=== PATIENT | female | born 1945 | race Caucasian/White ===

== ENCOUNTER 2021-07-14 20:16 | Inpatient (IN) | payer OTHER ==
[~2021-07-14] VITALS: Ht 160 cm; Wt 88.5 kg
[2021-07-14] MEDS ORDERED: COZAAR100 MG PO (20:36)
[2021-07-14] MEDS ORDERED: NORVASC5 MG PO (20:36)
[2021-07-14] MEDS ORDERED: LIPITOR40 M1 PO (20:36)
[2021-07-14] MEDS ORDERED: PROTONIX40 M1 PO (20:37)
--- NOTE | 2021-07-14 20:37 | NUR ---
SE RECIBE PTE ALERTA Y ORIENTADA X3 QUIEN REFIERE TENER DOLOR ABDOMINAL Y DISTENCION ABDOMINAL DESDE EL VIERNES. DORIS REFIERE DESDE EL VIERNES TOBIAS PRESENTADO DE 3 A 4 DIARREAS POR RUSS. AL RUSS DE HOY SOLO TUVO ALPHONSO DIARREA. SE MONITOREAN S/V Y SE UBICA.
--- NOTE | 2021-07-14 20:51 | NUR ---
SE ORIENTA PTE SOBRE TX MEDICO EL CUAL REFIERE ENTENDER.SE LE EXTRAEN MUESTRAS BAJO MEDIDAS ASEPTICAS,SE CANALIZA Y SE ADMINISTRA MEDICAMENTO MEDICAMENTO VENKATESH ORDEN MEDICA.SE ENTREGA CONTRASTE Y SE ORIENTA.PTE MANEJADO POR MS SHAH.
--- NOTE | 2021-07-15 00:53 | NUR ---
SE RECIBE PTE ALERTA Y ORIENTADA X3 EN BART CON BARANDAS ELEVADAS. PTE CANALIZADA AREA SUPRIYA DE EDEMA Y DE ENROJECIMIENTO. PTE EN ESPERA DE CT PO A REALIZAR A LAS 12:30AM.
--- NOTE | 2021-07-15 07:37 | NUR ---
SE RECIBE PACIENTE DE TURNO ANTERIOR, ALERTA Y ORIENTADA EN TIEMPO LUGAR Y PERSONA. UBICADA EN BART #09 CON BARANDAS ELEVADAS Y FRENOS AJUSTADOS POR SEGURIDAD. CON VENOPUNCION PATENTE, SUPRIYA DE ERITEMA Y EDEMA, RECIBIENDO AL MOMENTO 0.9 NSS 1000ML A 150ML/HR. PENDIENTE CONSULTA CON DRA. LUIS LAFLEUR. SE MANTIENE EN OBSERVACION POR CAMBIOS.
== END 2021-07-19 22:35 | disposition expired | DRG 329 ==
LOC: ER 20:16 → SEC-K 07-15 10:42 → SURG 07-15 10:42 → ICU 07-18 15:50
PROVIDERS: ADMIT Surgery; ATTEND Surgery
PROC: 02HV33Z Insertion of Infusion Device into Superior Vena Cava, Percutaneous Approach (ICD-10-PCS; 2021-07-16)
PROC: 0BH17EZ Insertion of Endotracheal Airway into Trachea, Via Natural or Artificial Opening (ICD-10-PCS; 2021-07-18)
PROC: 5A1945Z Respiratory Ventilation, 24-96 Consecutive Hours (ICD-10-PCS; 2021-07-18)
PROC: 0DTB0ZZ Resection of Ileum, Open Approach (ICD-10-PCS; principal; 2021-07-19)
PROC: 0D1B0Z4 Bypass Ileum to Cutaneous, Open Approach (ICD-10-PCS; 2021-07-19)
DX: K56.50 Intestinal adhesions [bands], unspecified as to partial versus complete obstruction (principal); K55.011 Focal (segmental) acute (reversible) ischemia of small intestine; A41.89 Other specified sepsis; R65.21 Severe sepsis with septic shock; J96.00 Acute respiratory failure, unspecified whether with hypoxia or hypercapnia; N17.8 Other acute kidney failure; N39.0 Urinary tract infection, site not specified; E66.01 Morbid (severe) obesity due to excess calories; I10 Essential (primary) hypertension; Z66 Do not resuscitate; Z53.31 Laparoscopic surgical procedure converted to open procedure; Z20.822 Contact with and (suspected) exposure to COVID-19